=== PATIENT | female | born 1985 | race Caucasian/White ===

== ENCOUNTER → 2017-11-13 | Outpatient (CLI) | payer OTHER ==
[2015-12-16 12:14] VITALS: BMI 41.0
[~2017-11-13] MED LIST: BUPIVACAINE 0.5 % 5 MG/1 ML MPF 30ML VIAL ONE; CEFAZOLIN SOD 1 GM VIAL ONE; CIPR0.3S OP; CLC100 PO; DEXAMETHASONE SOD INJ 4 MG/ML VIAL ONE; EpHEDrine SULFATE 50MG/5ML SYR ONE; FENTANYL CITRATE INJ 50 MCG/1 ML 2 ML VIAL ONE; HYDR-5688 PO; HYDROmorphone INJ 2 MG/ML SYR/VIAL ONE; IBUP-1050 PO; KETAMINE HCL INJ 50 MG/ML 10 ML VIAL ONE; MIDAZOLAM HCL 1 MG/ML 2ML VIAL ONE; MTR600X PO; MYL80 PO; ONDANSETRON INJ 2 MG/ML 2 ML VIAL ONE; OXYC-57 PO; PHENYLEPHRINE HCL INJ 10 MG/ML VIAL ONE; PRLSR20 PO; PROPOFOL IV EMULSION 10 MG/ML 20 ML VIAL IV ONE; SODIUM CHLORIDE 0.9% INJ 10 ML VIAL ONE; VASOPRESSIN 20 UNIT/ML VIAL ONE
[2017-11-13 13:25] VITALS: BMI 38.0
--- NOTE | 2017-11-13 13:52 | PAT Medication Instructions ---
Service Date Nov 13, 2017. Current Home Medication List Ibuprofen (Advil), 400 MG PO PRN Medication Instructions For Your Scheduled Surgery - Contact your surgeon's office for instructions for: Ibuprofen (Advil), 400 MG PO PRN If you have any questions please call us at [phone] or [phone] or [phone]
[2017-11-13 14:38] LABS: BASO % 0.5 %; BASO ABS # 0.05 K/uL (0-0.2); EOS % 1.2 %; EOS ABS # 0.11 K/uL (0-0.5); HEMATOCRIT 40.6 % (37-47); HEMOGLOBIN 13.9 g/dL (12.0-16.0); IG# 0.02 K/uL (0.00-0.02); LYMPH % 22.1 %; LYMPH ABS # 2.09 K/uL (1.2-3.4); MEAN CELL VOLUME 83.7 fL (80-100); MEAN CORPUSCULAR HEMOGLOBIN 28.7 pg (25-34); MEAN CORPUSCULAR HGB CONC 34.2 g/dl (32-36); MEAN PLATELET VOLUME 11.5 fL (7.4-10.4); MONO % 6.2 %; MONO ABS # 0.59 K/uL (0.11-0.59); NEUT % 69.8 %; NEUT ABS # 6.59 K/uL (1.4-6.5); PLATELET COUNT 247 K/uL (130-400); RED CELL DISTRIBUTION WIDTH CV 13.8 % (11.5-14.5); RED CELL DISTRIBUTION WIDTH SD 41.8 fL (36.4-46.3); WHITE BLOOD COUNT 9.45 K/uL (4.8-10.8)
--- NOTE | 2017-11-29 07:55 | CODING QUERY NO DIAGNOSIS ---
TREATMENT RENDERED WITHOUT A DIAGNOSIS 85 To promote full compliance with coding requirements relating to patient care, physician participation is requested in all cases of relocation manager uncertainty. Please assist us with providing a diagnosis/symptom for the test(s) below: A diagnosis/symptom was not documented on your Order. A valid diagnosis/symptom is required to bill all insurances. Please remember that we are unable to code a diagnosis of rule out, probable, possible, questionable, or suspected. DOS 11/13/17 Tests that require a diagnosis: * CBC W/AUTO DIFF DIAGNOSIS: * TYPE/SCREEN PROFILE DIAGNOSIS: Provider Signature: Date: Thank you [facility] Once completed, please kindly fax back to [phone] For questions please call [phone]
== END | disposition home or self-care (01) ==
LOC: C.LAB 08:00 → EDSTATUS 11-29 09:00
PROVIDERS: ATTEND Obstetrics & Gynecology Obstetrics
DX: Z01.818 Encounter for other preprocedural examination (principal); N80.9 Endometriosis, unspecified

== ENCOUNTER 2017-11-29 06:30 | Observation (INO) | payer OTHER ==
[2017-11-13 13:25] VITALS: BMI 38.0
[~2017-11-29] VITALS: Ht 167.6 cm; Wt 108.2 kg
[~2017-11-29 06:30] MED LIST changes: -BUPIVACAINE 0.5 % 5 MG/1 ML MPF 30ML VIAL ONE; +CEFAZOLIN 3000MG IV PUSH 22.5 ML IV SCH; -CEFAZOLIN SOD 1 GM VIAL ONE; -CIPR0.3S OP; -CLC100 PO; -DEXAMETHASONE SOD INJ 4 MG/ML VIAL ONE; -EpHEDrine SULFATE 50MG/5ML SYR ONE; -FENTANYL CITRATE INJ 50 MCG/1 ML 2 ML VIAL ONE; -HYDR-5688 PO; -HYDROmorphone INJ 2 MG/ML SYR/VIAL ONE; -KETAMINE HCL INJ 50 MG/ML 10 ML VIAL ONE; +LACTATED RINGER'S 1000ML 1,000 ML IV SCH; -MIDAZOLAM HCL 1 MG/ML 2ML VIAL ONE; -MTR600X PO; -MYL80 PO; -ONDANSETRON INJ 2 MG/ML 2 ML VIAL ONE; -OXYC-57 PO; -PHENYLEPHRINE HCL INJ 10 MG/ML VIAL ONE; -PRLSR20 PO; -PROPOFOL IV EMULSION 10 MG/ML 20 ML VIAL IV ONE; -SODIUM CHLORIDE 0.9% INJ 10 ML VIAL ONE; -VASOPRESSIN 20 UNIT/ML VIAL ONE
[2017-11-29 06:50] VITALS: Ht 167.6 cm; Wt 108.2 kg
[2017-11-29] MEDS ORDERED: ONDANSETRON INJ 2 MG/ML 2 ML VIAL IV PRN ×2 (08:00→15:45)
[2017-11-29] MEDS ORDERED: MEPERIDINE HCL 25 MG/ML CARP IV PRN (08:00)
[2017-11-29] MEDS ORDERED: NALOXONE HCL 0.4 MG/1 ML VIAL/CARP IV PRN (08:00)
[2017-11-29] MEDS ORDERED: ATROPINE SULFATE 0.1 MG/ML 5ML SYR IV PRN (08:00)
[2017-11-29] MEDS ORDERED: EpHEDrine SULFATE INJ 50 MG/ML AMP IV PRN (08:00)
[2017-11-29] MEDS ORDERED: HYDROmorphone INJ 0.5 MG/0.5 ML SYR IV PRN (08:00)
[2017-11-29] MEDS ORDERED: LABETALOL HCL IV 5 MG/ML 20ML IV PRN (08:00)
[2017-11-29] MEDS ORDERED: PHENYLEPHRINE 100MCG/ML 5ML SYR IV PRN (08:00)
[2017-11-29] MEDS ORDERED: FLUMAZENIL 0.1 MG/1 ML 10 ML VIAL IV PRN (08:00)
[2017-11-29] MEDS ORDERED: MoRPHine SULFATE 4 MG/ML 1 ML CARP\\VIAL IV PRN (08:00)
--- NOTE | 2017-11-29 08:03 | History & Physical Bridge Note ---
H&P Re-Evaluation Bridge Note: I have examined the patient, reviewed the History & Physical and in the interval since the performance of the History & Physical I have noted the following changes of clinical significance: No changes noted
[2017-11-29] MEDS ORDERED: SCOPOLAMINE 1.5 MG TDSY TD ONE ×2 (08:09→08:15)
--- NOTE | 2017-11-29 14:28 | OPERATIVE REPORT ---
DATE OF OPERATION: 11/29/2017 PREOPERATIVE DIAGNOSIS: Endometriosis. POSTOPERATIVE DIAGNOSES: Endometriosis with extensive intraabdominal adhesions. PROCEDURE: Laparoscopic hysterectomy, which will be dictated by Dr. De Luna and extensive lysis of adhesions, laparoscopically, which was my part of the case. SURGEON: Dr. Archer. OIL AND GAS LEASE PUMPER: Dr. De Luna and Dr. Ivey. FINDINGS: Dr. Ivey and Dr. De Luna were performing a laparoscopic hysterectomy. Upon entering the abdomen, they encountered significant adhesions. The adhesions were of the omentum to the anterior abdominal wall as well as the small bowel to the anterior abdominal wall as well as to the uterus and to the bladder. There were extensive adhesions to the lateral uterine ligamentous attachments as well. Some of the adhesions were dense and required very very meticulous dissection. TECHNIQUE: The patient was given a general anesthetic. The area was prepped and draped. The placement of the trocars will be dictated by Dr. De Luna. When I encountered the significant adhesions, asked if I would participate in the case. At that point, I began to take some adhesions off the small bowel off the uterus, but it became quite clear that they were significantly thickened there. There were adhesions to the right adnexa as well and to the anterior abdominal wall, making visualization of the entire top of the uterus difficult. I then tried to dissect the small bowel off the anterior abdominal wall, but because of the omentum adhesed to the anterior abdominal wall that dissection was difficult to see and even using a 30 degree scope was difficult to see the area of adhesion. For that reason, we placed 2 additional trocars more superiorly in the abdomen under direct vision. That allowed me to see the superior most attachments of the omentum and I began taking the omentum off the abdominal working from superior to inferior and then from left to right. That exposed right colon and small bowel that were adhesed to the anterior abdominal wall and those adhesions were taken down using sharp dissection and blunt dissection. No cautery was used. I then worked towards the left side and took the adhesions of the omentum off the anterior abdominal wall and then worked towards the right side and continued with that dissection until I came to the very difficult densely adhesed small bowel towards the right lower pelvis. In taking the omentum down, though it gave me access to that area and I was able then to dissect towards the left and the right of the thickest of the adhesions, freeing small bowel and omentum further to offer the anterior abdominal wall until the densely thick adhesions were the only ones that tethered that loop of small bowel. Then staying right on the peritoneum and in fact taking a small sliver of peritoneum with the adhesions and the final ones were divided, which then allowed me to better visualize the pelvis. It was clear at that point that the bladder was densely adherent to the anterior abdominal wall as well. I then was able to grasp the superior edge of that peritoneal attachment and I was able to dissect it off the anterior surface of the uterus which allowed me then to enter a space on the anterior surface of the uterus at the junction with the cervix that was free of adhesion. I then worked left to right to dissect all of those free. That allowed better elevation of the broad and the round ligaments and on the left, there was a loop of small bowel and sigmoid colon that was densely adherent to the undersurface of the broad ligament. Using a very close meticulous a mm x a mm dissection, I was able to separate those adhesions and establish a plane in an area that had no adhesions on the inferior most aspect of the broad ligament and then worked from lateral to medial in freeing those areas. That allowed me to establish a plane behind the significantly thickened loop of small bowel that was densely attached to the dome of the uterine fundus. I then worked on the right side, taking adhesions off the lateral abdominal working from superior to inferior and lateral to medial and I was able then to identify the edge of the broad ligament. I elevated the broad ligament and worked posterior to that where there were some more flimsy adhesions of the right colon and small bowel and that entire posterior surface of the broad ligament was freed. I then worked lateral to medial from there and I was able to dissect some more loosely adherent small bowel off the lower portion of the fundus which left only the significantly thickened portion. I then was able to carefully dissect and also used some hydrodissection to separate some of those adhesions and staying right on the uterus and taking just the edge of the serosa of the uterus with a small bowel, I was able to free that loop as well. That then allowed exposure of the entire uterus including the cervix. At that point, Dr. De Luna and Dr. Ivey completed the hysterectomy and they will dictate that portion. I attest to the content of the Intraoperative Record and any orders documented therein. Any exception s are noted below.
[2017-11-29] MEDS ORDERED: FLOSEAL HEMOSTATIC MATRIX 10ML TOP ONE (15:29)
[2017-11-29] MEDS ORDERED: BUPIVACAINE 0.5 % 5 MG/1 ML MPF 30ML VIAL INJ ONE (15:30)
--- NOTE | 2017-11-29 15:43 | [facility] Post Operative Brief Note ---
Immediate Operative Summary Operative Date Nov 29, 2017. Pre-Operative Diagnosis Pelvic Pain, Endometriosis Post-Operative Diagnosis Same plus severe adhesions of the omentum and bowel to the anterior abdominal wall. uterus and right pelvic sidewall Procedure(s) Performed Total laparoscopic hysterectomy, Extensive lysis of adhesions, Fulguration of endometrial implants, and cystoscopy Surgeon Dr. De Luna, Applications Sales Representative Surgeon(s) Dr. Ivey Estimated Blood Loss 170 Findings Consistent with Post-Op Diagnosis Fluids (cc crystalloids) 3600 Specimens Uterus and cervix Drains None Anesthesia Type General Complication(s) none Disposition Disposition: Recovery Room / PACU
[2017-11-29] MEDS ORDERED: KETOROLAC TROMETHAMINE 30 MG/ML VIAL IV. PRN (15:45)
[2017-11-29] MEDS ORDERED: OXYCODONE/ACETAMINOPHEN 5-325 TAB PO PRN (15:45)
[2017-11-29] MEDS ORDERED: OXYC-57 PO (16:19)
[2017-11-29] MEDS ORDERED: MTR600X PO (16:19)
[2017-11-29] MEDS ORDERED: CLC100 PO (16:19)
[2017-11-29] MEDS ORDERED: MYL80 PO (16:19)
--- NOTE | 2017-11-29 16:21 | Discharge Instructions ---
Discharge Instructions Date of Service Nov 29, 2017. Admission Reason for Admission: Chronic Pelvis Pain, Endometriosis Discharge Discharge Diagnosis / Problem: Post-op Discharge Goals Goal(s): Routine recovery after surgery Activity Recommendations Activity Limitations: as noted below POST OPERATIVE: BOWEL FUNCTION/MEDICATIONS: 1. Constipation pain and discomfort are the most common complaints 5-7 days after surgery. Points 2-6 address the things that can help. 2. Chewing gum can help stimulate the gut and help improve digestion and motility. 3. Milk of Magnesia 1-2 times per day until return of bowel function. 4. Colace is a stool softener that helps. Taking this 2-3 times per day until bowel function returns to normal is highly recommended. 5. Dulcolax is a laxative that may be used if several days have passed without a bowel movement. Alternatively Miralax may be used daily instead. 6. Drink plenty of fluids as this will also reduce constipation. 7. Narcotic pain medications will be prescribed by your physician. They are safe to use and we encourage you to use them. If you are not allergic, ibuprofen will also be prescribed. Many patients will be able to transition off of the narcotic medications to ibuprofen by postoperative day 3. ACTIVITY RECOMMENDATIONS: 1. Get plenty of rest and listen to your body. If you are tired, take a nap. 2. You may shower, but do not take a tub bath until you see your doctor at the 2 week post operative visit. 3. Absolutely NO intercourse and nothing in the vagina until you are examined by your doctor at the 6 week visit. At that visit it will be determined when such activities can be resumed. This can range from 6-12 weeks after your surgery depending on healing time. 4. The main physical activity in the first week should be walking. By the second week you can slowly increase activity. There are no limits on walking up and down stairs. 5. Do not lift more than 5-10 lbs for 4 weeks. Remember the "one-handed rule", i.e. if you can lift something with only one hand it's likely okay. 6. Minimize survey and mapping technician like vacuuming and exercising for 4 weeks. "Overdoing it" can lead to incisions not healing, pain and vaginal bleeding , so again, listen to your body. 7. Driving can be resumed when you feel able. Do not drive within 24 hours of taking a narcotic medication. EXPECTATIONS: 1. Vaginal spotting, bleeding and discharge are common after surgery. There may even be an odor to the discharge which is often related to sutures used in the vagina. If you experience heavy vaginal bleeding, call the office number day or night [phone] 2. Bladder discomfort is common after surgery from the catheter. This usually resolves in 1-2 weeks. 3. By the end of the 3rd or 4th week you should be feeling much better. It may take up to 6 weeks for your energy levels to return to normal. 4. Narcotic medications have side effects such as: dizziness, headache, nausea and/or vomiting. If you suspect your pain medication is causing problems, call our office and we may be able to prescribe an alternate medication. 5. The skin incisions are often covered with a liquid bandage. This will gradually peel off over time. CALL THE OFFICE IF YOU HAVE ANY OF THE FOLLOWIN. Temperature of 101 degrees or higher. 2. Severe abdominal or pelvic pain not relieved by pain medication. 3. Persistent nausea or vomiting. 4. Increased pain with urination or difficulty urinating. 5. Bright red bleeding that soaks more than 1 pad per hour. CONTACT PHONE NUMBERS: Main Office: [phone] FOLLOW-UP: Post-Operative Appointments: * Individual instructions will have been given about the timing of your first examination, but this is usually at the end of the second week home. * You will need to call the office at soon after discharge to make the appointment for your post-op check-up if it has not already been scheduled. * Additional information regarding activity, sexual intercourse and when to return to work will be given at this appointment. WE WISH YOU A SPEEDY RECOVERY! . Current Hospital Diet Patient's current hospital diet: Discharge Diet Recommended Diet: Regular Diet Procedures Procedures Performed: Total Laparoscopic Hysterectomy, Fulgeration of endometrial implants, Extensive lysis of adhesions Cystoscopy- Dr De Luna Extensive lysis of adhesions- Dr Archer Pending Studies Studies pending at discharge: no Medical Emergencies . Who to Call and When: Medical Emergencies: If at any time you feel your situation is an emergency, please call 911 immediately. . Non-Emergent Contact Non-Emergency issues call your: Specialist . . "Provider Documentation" section prepared by Jazmín Herrera. .
[2017-11-29] MEDS ORDERED: IV FLUIDS COMPLETED PRN (16:30)
[2017-11-29 17:10] VITALS: BP 111/73; PULSE 88; TEMP 36.4; O2SAT 99
[2017-11-29] MEDS ORDERED: SIMETHICONE 80 MG CHEW PO PRN (17:30)
[2017-11-29] MEDS ORDERED: ACETAMINOPHEN 325 MG TAB PO SCH (17:30)
[2017-11-29 17:40] VITALS: BP 100/68; PULSE 98; O2SAT 100
[2017-11-29] MEDS: CHECK SCOPOLAMINE PATCH PLACEMENT SCH (17:41)
[2017-11-29 18:10] VITALS: BP 119/77; PULSE 88; O2SAT 98
[2017-11-29] MEDS: LACTATED RINGER'S 1000ML 1,000 ML IV SCH (18:37)
[2017-11-29] MEDS ORDERED: PROMETHAZINE HCL 25 MG TAB PO PRN (18:45)
[2017-11-29 19:20] VITALS: BP 97/67; PULSE 88; TEMP 36.4; O2SAT 99
[2017-11-29] MEDS: ACETAMINOPHEN 325 MG TAB PO PRN (19:25)
[2017-11-29] MEDS ORDERED: IBUPROFEN 600 MG TAB PO SCH (20:00)
[2017-11-29 20:05] LABS: HEMATOCRIT 37.2 % (37-47); HEMOGLOBIN 12.1 g/dL (12.0-16.0)
[2017-11-29 20:10] VITALS: BP 110/73; PULSE 88; TEMP 37; O2SAT 100
[2017-11-29] MEDS: DOCUSATE SODIUM 100 MG CAP PO SCH (20:48)
[2017-11-29] MEDS: IBUPROFEN 600 MG TAB PO PRN (20:50)
--- NOTE | 2017-11-29 21:23 | Anesthesiology Progress Note ---
Anesthesia Post Op Note Date & Time Nov 29, 2017 at 21:23 Vital Signs Pain Intensity: 1.0 Vital Signs Past 12 Hours Date Time Temp Pulse Resp B/P (MAP) Pulse Ox O2 Delivery O2 Flow Rate FiO2 11/29/17 19:20 36.4 88 16 97/67 (77) 99 Room Air 11/29/17 18:10 88 16 119/77 (91) 98 Room Air 11/29/17 17:40 98 18 100/68 (79) 100 Room Air 11/29/17 17:10 36.4 88 18 111/73 (86) 99 Room Air 11/29/17 17:10 99 Room Air 11/29/17 17:10 99 Room Air 11/29/17 16:57 91 15 98 11/29/17 16:57 92 15 11/29/17 16:56 120/69 11/29/17 16:52 102 20 97 11/29/17 16:52 102 20 11/29/17 16:51 143/66 11/29/17 16:47 97 19 99 11/29/17 16:47 97 19 11/29/17 16:46 117/67 11/29/17 16:44 36.4 99 Nasal Cannula 4 11/29/17 16:42 102 21 100 11/29/17 16:42 101 21 11/29/17 16:41 124/57 11/29/17 16:40 97 16 11/29/17 16:40 96 16 100 11/29/17 16:36 113/62 11/29/17 16:35 100 21 11/29/17 16:35 100 21 100 11/29/17 16:32 138/67 11/29/17 16:30 94 21 11/29/17 16:30 106 21 100 11/29/17 16:29 96/73 11/29/17 16:25 104 18 98 11/29/17 16:25 104 18 11/29/17 16:21 108/77 11/29/17 16:20 103 15 11/29/17 16:20 15 11/29/17 16:17 111/73 11/29/17 16:15 108 16 115/77 98 11/29/17 16:15 106 16 11/29/17 16:11 115/77 11/29/17 16:10 108 15 11/29/17 16:10 107 15 100 4/6/18 16:06 97/80 11/29/17 16:05 107 22 97 11/29/17 16:05 106 22 11/29/17 16:02 102/71 11/29/17 16:00 112 17 100 11/29/17 16:00 113 17 11/29/17 15:59 119/84 11/29/17 15:56 75/60 11/29/17 15:55 122 26 100 11/29/17 15:55 121 26 11/29/17 15:50 36.1 119 16 119/84 100 Oxymask 10 Notes Mental Status: alert / awake / arousable, participated in evaluation Pt Amnestic to Procedure: Yes Nausea / Vomiting: adequately controlled Pain: adequately controlled Airway Patency, RR, SpO2: stable & adequate BP & HR: stable & adequate Hydration State: stable & adequate Anesthetic Complications: no major complications apparent
[2017-11-30] VITALS: BP 94/61; PULSE 92; TEMP 37.2; O2SAT 99
[2017-11-30] MEDS: CHECK SCOPOLAMINE PATCH PLACEMENT SCH ×2 (00:25→07:46)
[2017-11-30] MEDS: ACETAMINOPHEN 325 MG TAB PO PRN (01:08)
[2017-11-30] MEDS: LACTATED RINGER'S 1000ML 1,000 ML IV SCH (02:31)
[2017-11-30 04:00] VITALS: BP 111/70; PULSE 84; TEMP 37.5; O2SAT 96
[2017-11-30] MEDS: IBUPROFEN 600 MG TAB PO PRN (04:06)
[2017-11-30 07:50] VITALS: BP 107/70; PULSE 84; PULSE 88; PULSE 94; TEMP 37.1; O2SAT 97
[2017-11-30 08:27] LABS: BASO % 0.1 %; BASO ABS # 0.01 K/uL (0-0.2); EOS % 0.1 %; EOS ABS # 0.01 K/uL (0-0.5); HEMATOCRIT 31.5 % (37-47); HEMOGLOBIN 10.1 g/dL (12.0-16.0); IG# 0.02 K/uL (0.00-0.02); LYMPH % 18.1 %; LYMPH ABS # 2.12 K/uL (1.2-3.4); MEAN CELL VOLUME 85.8 fL (80-100); MEAN CORPUSCULAR HEMOGLOBIN 27.5 pg (25-34); MEAN CORPUSCULAR HGB CONC 32.1 g/dl (32-36); MEAN PLATELET VOLUME 11.3 fL (7.4-10.4); MONO ABS # 0.94 K/uL (0.11-0.59); NEUT % 73.5 %; PLATELET COUNT 212 K/uL (130-400); RED CELL DISTRIBUTION WIDTH CV 14.3 % (11.5-14.5); RED CELL DISTRIBUTION WIDTH SD 44.5 fL (36.4-46.3)
--- NOTE | 2017-11-30 08:39 | [facility] Operative Report ---
Operative Report Operative Date Nov 30, 2017. Pre-Operative Diagnosis Pelvic Pain, Endometriosis Post-Operative Diagnosis Same plus extensive adhesions omentum, bowel, anterior abdominal wall, pelvic side wall and uterus Procedure(s) Performed Total Laparoscopic Hysterectomy, Fulgeration of endometrial implants, Extensive lysis of adhesions Cystoscopy- Dr De Luna Extensive lysis of adhesions- Dr Archer Surgeon Dr. De Luna, Control Panel Builder Surgeon(s) Dr. Ivey Estimated Blood Loss 170ML Findings 1. Severe adhesive disease disease (omentum and bowel adhered to the anterior abdominal wall down the the level of the uterus, bowel was adhered to the right pelvic side wall, the uterus was encased in omentum and bowel, the bowel was severely adhesed to to posterior lower uterine body). 2. Normal appearing uterine size, anteverted, after extensive lysis of adhesions. 3. Right fallopian tube visualized and severed adhered to the pelvic side wall. 4. Right adnexal mass smooth in appearance, possible cyst since Patient had a previous removal of the right ovary. Mass also severely adhered to the pelvic sidewall. 5. Normal appearing left ovary. 6. Normal appearing left fallopian tube, however, fimbrae portion not visualized. 7. Both adnexal regions severely adhered to the pelvic sidewall and not removed because of inability to locate or visualize ureter. 8. Normal appearing liver edge, falciform ligament adhered to anterior abdominal wall. 9. Normal appearing bladder on cystoscopy. Fluids 3600 Specimens A. uterus and cervix Drains None Anesthesia Type General Complication(s) none Disposition Recovery Room / PACU Indications 32 yo with chronic pelvic pain and history of stage 3 endometriosis. Description of Procedure The patient was brought into the operating room with an intravenous line in placed, and anesthetic was administered. She was placed in a low anterior lithotomy position using Alonso stirrups. The vaginal portion of the procedure included placement of a V-care uterine manipulator and a manriquez catheter. The laparoscopic port sites were anesthetized with intradermal injection of 0.50 % Sensicaine. There were four ports placed originally, including a 5-mm left subcostal port, a 5-mm umbilical port, and 5-mm right and left lower quadrant ports. The the 5 mm trocar/sleeve and laparoscope was directly entered into the pelvic cavity and a pneumoperitoneum was insufflated without difficulty. There were severe adhesions throughout the pelvic cavity. The omentum and bowel were adhered to the anterior abdominal wall, the right pelvic sidewall, and the the fundus and posterior body of the uterus. Due to severe adhesive disease, the uterus and adnexa were unable to be completely visualized. Dr. Archer ( General Surgeon) was consulted to assist with lysis of adhesions of the omentum and bowel. In order for better visualization of the entire abdomino-pelvic cavity, additional incisions were required. A 10-mm port was placed supraumbilically and an additional 5-mm port was placed in the LUQ. Extensive and meticulous lysis of adhesions was then performed by Dr. Archer (please see General Surgery operative report). Attention was then turned to the laparoscopic hysterectomy. The left utero- ovarian ligament was then grasped, coagulated and cut with the OLIVIA harmonic. The mesovarium was skeletonized. The left round ligament was also grasped, coagulated and cut. A bladder flap was mobilized by dividing the round ligaments using the OLIVIA harmonic, and the peritoneum on the vesicouterine fold was incised to mobilize the bladder. Once the colpotomy ring was skeletonized and in position, the left uterine artery was sealed using the OLIVIA Harmonic at the level of the colpotomy ring. The same procedure was performed on the contralateral side. The vagina was transected using the OLIVIA harmonic resulting in separation of the uterus and cervix. The uterus and cervix were then delivered through the vagina, and the pneumo-occluder balloon was reinserted to maintain pneumoperitoneum. The vaginal vault was closed with 0 V-loc. The abdomen was irrigated, and oozing was appreciated in the right corner adjacent to the vaginal cuff. A figure of eight suture was placed with 2-0 Vicryl. Hemostasis was achieved. Floseal was applied to the vaginal cuff area. The insufflation pressure was reduced, and no evidence of bleeding was seen. The supraumbilical port was then removed, and the fascia was closed with a 0- Vicryl on a UR-6 in a figure of eight fashion.. The remaining ports were removed under direct laparoscopic guidance, and the pneumoperitoneum was released. The skin was closed with interrupted subcuticular stitches using 4-0 Monocryl suture and dermabond. The manriquez catheter was removed. Cystoscopy was then performed with a 30 degree scope. Normal appearing bladder dome. Bilateral efflux of urine by the ureteral orifices. A 360 degree survery of the bladder was performed and revealed no lesions or sutures. The cystoscope was then removed and a new manriquez catheter inserted. The final sponge, needle, and instrument counts were correct at the completion of the procedure. The patient was awakened and taken to the post anesthesia care unit in stable condition. I attest to the content of the Intraoperative Record and any orders documented therein. Any exceptions are noted below.
[2017-11-30 09:01] LABS: CALCIUM 8.3 mg/dl (8.5-10.1); CREATININE 0.64 mg/dl (0.60-1.20); POTASSIUM 3.9 mmol/L (3.5-5.1)
[2017-11-30] MEDS ORDERED: CIPR0.3S OP (09:19)
--- NOTE | 2017-11-30 09:24 | Surgery Progress Note ---
Surgery Progress Note Date of Service Nov 30, 2017. Subjective Post OP Day: 1 + feeling well Pt c/o right eye irritation. Objective Vital Signs: Date Time Temp Pulse Resp B/P (MAP) Pulse Ox O2 Delivery O2 Flow Rate FiO2 11/30/17 07:50 37.1 88 18 107/70 (82) 97 Room Air 84 94 11/30/17 07:50 97 Room Air 11/30/17 04:00 37.5 84 18 111/70 (84) 96 Room Air 11/30/17 00:00 37.2 92 18 94/61 (72) 99 Room Air 11/30/17 00:00 99 Room Air 11/29/17 20:10 37.0 88 18 110/73 (85) 100 Room Air 11/29/17 19:20 36.4 88 16 97/67 (77) 99 Room Air 11/29/17 18:10 88 16 119/77 (91) 98 Room Air 11/29/17 17:40 98 18 100/68 (79) 100 Room Air 11/29/17 17:10 36.4 88 18 111/73 (86) 99 Room Air 11/29/17 17:10 99 Room Air 11/29/17 17:10 99 Room Air 11/29/17 16:57 91 15 98 11/29/17 16:57 92 15 11/29/17 16:56 120/69 11/29/17 16:52 102 20 97 11/29/17 16:52 102 20 11/29/17 16:51 143/66 11/29/17 16:47 97 19 99 11/29/17 16:47 97 19 11/29/17 16:46 117/67 11/29/17 16:44 36.4 99 Nasal Cannula 4 11/29/17 16:42 102 21 100 11/29/17 16:42 101 21 11/29/17 16:41 124/57 11/29/17 16:40 97 16 11/29/17 16:40 96 16 100 11/29/17 16:36 113/62 11/29/17 16:35 100 21 11/29/17 16:35 100 21 100 11/29/17 16:32 138/67 11/29/17 16:30 94 21 11/29/17 16:30 106 21 100 4/6/18 16:29 96/73 11/29/17 16:25 104 18 98 11/29/17 16:25 104 18 11/29/17 16:21 108/77 11/29/17 16:20 103 15 11/29/17 16:20 15 11/29/17 16:17 111/73 11/29/17 16:15 108 16 115/77 98 11/29/17 16:15 106 16 11/29/17 16:11 115/77 11/29/17 16:10 108 15 11/29/17 16:10 107 15 100 11/29/17 16:06 97/80 11/29/17 16:05 107 22 97 11/29/17 16:05 106 22 11/29/17 16:02 102/71 11/29/17 16:00 112 17 100 11/29/17 16:00 113 17 11/29/17 15:59 119/84 11/29/17 15:56 75/60 11/29/17 15:55 122 26 100 11/29/17 15:55 121 26 11/29/17 15:50 36.1 119 16 119/84 100 Oxymask 10 General Appearance: WD/WN, no apparent distress Respiratory/Chest: chest non-tender, lungs clear, normal breath sounds, no respiratory distress, no accessory muscle use Cardiovascular: regular rate, rhythm Abdomen: normal bowel sounds, non tender, non distended, soft Incision(s): clean, dry, intact, no erythema, no drainage Laboratory Results: Results Past 24 Hours Test 11/29/17 19:49 11/30/17 08:02 Range/Units Hemoglobin 12.1 10.1 12.0-16.0 g/dL Hematocrit 37.2 31.5 37-47 % White Blood Count 11.70 4.8-10.8 K/uL Red Blood Count 3.67 4.2-5.4 M/uL Mean Corpuscular Volume 85.8 80-100 fL Mean Corpuscular Hemoglobin 27.5 25-34 pg Mean Corpuscular Hemoglobin Concent 32.1 32-36 g/dl Platelet Count 212 130-400 K/uL Mean Platelet Volume 11.3 7.4-10.4 fL Neutrophils (%) (Auto) 73.5 % Lymphocytes (%) (Auto) 18.1 % Monocytes (%) (Auto) 8.0 % Eosinophils (%) (Auto) 0.1 % Basophils (%) (Auto) 0.1 % Neutrophils # (Auto) 8.60 1.4-6.5 K/uL Lymphocytes # (Auto) 2.12 1.2-3.4 K/uL Monocytes # (Auto) 0.94 0.11-0.59 K/uL Eosinophils # (Auto) 0.01 0-0.5 K/uL Basophils # (Auto) 0.01 0-0.2 K/uL RDW Standard Deviation 44.5 36.4-46.3 fL RDW Coefficient of Variation 14.3 11.5-14.5 % Immature Granulocyte % (Auto) 0.2 % Immature Granulocyte # (Auto) 0.02 0.00-0.02 K/uL Sodium Level 141 136-145 mmol/L Potassium Level 3.9 3.5-5.1 mmol/L Chloride Level 108 98-107 mmol/L Carbon Dioxide Level 26 21-32 mmol/L Anion Gap 7.0 3-11 mmol/L Blood Urea Nitrogen 9 7-18 mg/dl Creatinine 0.64 0.60-1.20 mg/dl Est Creatinine Clear Calc Drug Dose 157.1 ml/min Estimated GFR () 136.8 Estimated GFR (Non- 118.1 BUN/Creatinine Ratio 13.5 10-20 Random Glucose 93 70-99 mg/dl Calcium Level 8.3 8.5-10.1 mg/dl Assessment & Plan 32 yo s/p TLH/Extensive MAMTA/and cystoscopy on 11/30/17. regular diet Discharge home with instructions/meds.
[2017-11-30] MEDS: DOCUSATE SODIUM 100 MG CAP PO SCH (09:25)
[2017-11-30 10:00] VITALS: BP 107/70; PULSE 94; TEMP 37.1; O2SAT 97
== END 2017-11-30 10:00 | disposition home or self-care (01) ==
LOC: C.ACU 06:30 → C.MS4N 07:08 → ENRESERV 16:59
PROVIDERS: ADMIT Obstetrics & Gynecology Obstetrics; ATTEND Obstetrics & Gynecology Obstetrics
DX: N80.0 Endometriosis of uterus (principal); N73.6 Female pelvic peritoneal adhesions (postinfective); J45.909 Unspecified asthma, uncomplicated; Z91.018 Allergy to other foods; Z88.0 Allergy status to penicillin; Z88.1 Allergy status to other antibiotic agents; Z91.011 Allergy to milk products; Z91.030 Bee allergy status; Z90.89 Acquired absence of other organs; Z98.890 Other specified postprocedural states; E66.9 Obesity, unspecified; Z98.51 Tubal ligation status; Z90.49 Acquired absence of other specified parts of digestive tract; Z68.38 Body mass index [BMI] 38.0-38.9, adult; Z80.41 Family history of malignant neoplasm of ovary

== ENCOUNTER 2017-12-04 02:07 | Inpatient (IN) | payer OTHER ==
[2017-12-04] VITALS (7 sets, daily range): BP systolic 124–155; BP diastolic 80–98; PULSE 78–95; TEMP 36.5–37.3; O2SAT 94–100; Ht 162.6 cm; Wt 111.3 kg
[~2017-12-04] VITALS: Ht 162.6 cm; Wt 111.3 kg
[~2017-12-04 02:07] MED LIST changes: -CEFAZOLIN 3000MG IV PUSH 22.5 ML IV SCH; +CIPR0.3S OP; +CLC100 PO; -IBUP-1050 PO; -LACTATED RINGER'S 1000ML 1,000 ML IV SCH; +MTR600X PO; +MYL80 PO; +OXYC-57 PO
[2017-12-04] MEDS ORDERED: ACETAMINOPHEN 325 MG TAB PO PRN (05:15)
[2017-12-04] MEDS ORDERED: ONDANSETRON INJ 2 MG/ML 2 ML VIAL IV PRN (05:15)
--- NOTE | 2017-12-04 05:43 | History and Physical ---
History & Physical Date & Time of Service: Dec 04, 2017 at 05:43 Chief Complaint: Sbo, Septis Primary Care Physician: Kojo Still M.D. History of Present Illness Source: patient Patient is a 32-year-old female with past medical history of prothrombin gene mutation, migraine, endometriosis, obesity and other problems presents with history of worsening abdominal pain nausea vomiting. Patient underwent laparoscopic hysterectomy, extensive lysis of adhesions of omentum, bowel, anterior abdominal wall, pelvic sidewall and uterus on November 30, 2017 by and . Patient is a direct admit from [facility]. Patient reports having nausea vomiting and abdominal pain since 2 days duration. She states having multiple episodes of vomiting which is nonbloody. Reports having abdominal pain as crampy in nature, diffuse, nonradiating, 10/10 intensity, predominantly located in the epigastric, right lower quadrant and right upper quadrant. Her last bowel movement was yesterday and admits to passing gas currently. Reports associated poor appetite and intermittent dizziness which she attributes to pain. Patient had CT scan at [facility] which is suggestive of developing bowel obstruction proximal to distal ileum. Patient received IV fluids and IV vancomycin, cefoxitin, Levaquin at [facility]. Denies any history of chest pain, SOB, palpitations, pedal edema, cough, fever, chills, headache, blood in stools , diarrhea, dysuria. Past Medical/Surgical History Medical Problems: (1) Abdominal pain (2) Endometriosis (3) Pelvic pain Past Surgical History: X2 Right oophorectomy Hysterectomy Cholecystectomy Family History Mother: Heart disease Father: Brain aneurysm. Social History Smoking Status: Never Smoker Smokeless Tobacco Use: No Alcohol Use: socially Drug Use: none Marital Status: Immunizations History of Influenza Vaccine: No History of Tetanus Vaccine?: Yes History of Pneumococcal: No History of Hepatitis B Vaccine: Unknown Allergies Coded Allergies: BEE STING (Verified Allergy, Severe, ANAPHYLAXIS, 11/29/17) [place] (Verified Allergy, Intermediate, HIVES, 11/29/17) Erythromycin (Verified Adverse Reaction, Intermediate, SEVERE NAUSEA VOMITING, 11/29/17) Macrolides and Ketolides (Verified Adverse Reaction, Intermediate, Nausea and vomiting, 11/29/17) Penicillins (Verified Adverse Reaction, Intermediate, SEVERE NAUSEA AND VOMITING, 11/29/17) Tetracycline (Verified Adverse Reaction, Intermediate, VOMITING, 11/29/17) Dairy (Verified Adverse Reaction, Mild, GI UPSET, 11/29/17) Gluten (Verified Adverse Reaction, Mild, GI UPSET, 11/29/17) Home Medications Scheduled Docusate Sodium (Docusate Sodium), 100 MG PO BID Scheduled PRN Ibuprofen (Ibuprofen), 600 MG PO Q6H PRN for Pain Oxycodone/Acetaminophen 5MG/325MG (Percocet 5MG/325MG), 1 TAB PO Q4H PRN for Pain (pain scale 1-5) Simethicone (Mi-Acid Gas Relief), 80 MG PO TID PRN for GAS Review of Systems See HPI for pertinent positives & negatives. A total of 10 systems reviewed and were otherwise negative. Physical Exam Vital Signs Date Time Temp Pulse Resp B/P (MAP) Pulse Ox O2 Delivery O2 Flow Rate FiO2 12/04/17 05:05 36.8 94 18 142/96 95 Room Air 12/04/17 04:53 36.8 94 18 142/96 (111) 95 Room Air General Appearance: no apparent distress, + obese Head: normocephalic, atraumatic Eyes: normal inspection, PERRL, EOMI, sclerae normal ENT: normal ENT inspection, hearing grossly normal Neck: supple, trachea midline Respiratory/Chest: chest non-tender, lungs clear, no respiratory distress, no accessory muscle use, + decreased breath sounds Cardiovascular: regular rate, rhythm, no edema, no murmur, + tachycardia Abdomen/GI: soft, + tenderness (Epigastric, RUQ, RLQ), + abnormal bowel sounds (decreased), + pertinent finding (Post surgical scars noted) Back: normal inspection Extremities/Musculoskelatal: normal inspection, no pedal edema Neurologic/Psych: front desk representative II-XII nml as tested, no motor/sensory deficits, alert, normal mood/affect, oriented x 3 Skin: normal color, warm/dry Diagnostics Laboratory Results Results Past 24 Hours Test 12/04/17 05:40 Range/Units Microbiology Results 12/04/17 Blood Culture, Ordered Pending 12/04/17 Blood Culture, Ordered Pending Diagnostic Radiology CT ABD: done at [facility]: 1,Post operative changes of hysterectomy including a moderate amount of free fluid with no abnormal enhancement, pelvic extraperitoneal gas, and anterior abdominal wall gas. 2, distended fluid-filled small bowel loops with air-fluid levels proximal to distal ileum wall thickening and fat stranding. This could be developing bowel obstruction, or ileus associated with enteritis. Follow-up as clinically indicated. Impression Assessment and Plan Small Bowel Obstruction: Possible sepsis from Enteritis H/O recent hysterectomy with extensive lysis of adhesions by y and Presented with abd pain, nausea, vomiting, Leukocytosis Initial lactate 2.4, later 1.3 after IV fluids at [facility] CXR, UA normal at [facility] Lipase: normal Last BM:yesterday NPO for for now IV fluids, Pain control, antiemetics Empiric Abx: Cefoxitin, Flagyl Surgery consulted Blood cultures ordered Check CBC, CMP,lactate Consider OBGYN consult if needed Pain control H/P Prothrombin gene mutation: No ton any medications monitor Migraine: well controlled currently not on meds Obesity: BMI:41.9 DVT Px: Heparin SQ Code Status: Full Code Disposition: Expect to discharge home when stable Advanced Directives Existing Living Will: No Existing Power of Soft Drink Powder Mixer: No Resuscitation Status VTE Prophylaxis Will order VTE Prophylaxis: Yes
[2017-12-04] MEDS ORDERED: MoRPHine SULFATE 2 MG/ML CARP IV PRN (05:45)
[2017-12-04] MEDS ORDERED: SIMETHICONE 80 MG CHEW PO PRN (05:45)
[2017-12-04] MEDS: SODIUM CHLORIDE 0.9% 1000ML 1,000 ML IV SCH ×2 (05:59→20:06)
[2017-12-04] MEDS: CEFOXITIN IV 2,000 MG in DEXTROSE 5% 50ML 50 ML IV SCH ×3 (06:13→18:25)
[2017-12-04] MEDS ORDERED: DOCUSATE SODIUM 100 MG CAP PO PRN (06:15)
[2017-12-04 06:44] LABS: BASO % 0.2 %; BASO ABS # 0.02 K/uL (0-0.2); EOS % 3.2 %; EOS ABS # 0.39 K/uL (0-0.5); HEMATOCRIT 36.4 % (37-47); HEMOGLOBIN 11.9 g/dL (12.0-16.0); IG# 0.04 K/uL (0.00-0.02); LYMPH % 6.5 %; LYMPH ABS # 0.79 K/uL (1.2-3.4); MEAN CELL VOLUME 85.4 fL (80-100); MEAN CORPUSCULAR HEMOGLOBIN 27.9 pg (25-34); MEAN CORPUSCULAR HGB CONC 32.7 g/dl (32-36); MEAN PLATELET VOLUME 10.9 fL (7.4-10.4); MONO % 3.9 %; MONO ABS # 0.48 K/uL (0.11-0.59); NEUT % 85.9 %; NEUT ABS # 10.46 K/uL (1.4-6.5); PLATELET COUNT 301 K/uL (130-400); RED CELL DISTRIBUTION WIDTH SD 43.1 fL (36.4-46.3); WHITE BLOOD COUNT 12.18 K/uL (4.8-10.8)
[2017-12-04 07:22] LABS: ALBUMIN 3.2 gm/dl (3.4-5.0); CALCIUM 8.4 mg/dl (8.5-10.1); CREATININE 0.87 mg/dl (0.60-1.20); POTASSIUM 4.1 mmol/L (3.5-5.1)
[2017-12-04 07:24] LABS: TOTAL PROTEIN 6.9 gm/dl (6.4-8.2)
[2017-12-04] MEDS: METRONIDAZOLE / NSS 500 MG in PREMIXED NSS 100 ML IV SCH ×3 (07:33→23:43)
[2017-12-04] MEDS: HEPARIN SOD 5000 UNIT/0.5 ML CARP SQ SCH ×2 (09:09→20:14)
--- NOTE | 2017-12-04 11:27 | Surgery Consultation ---
Consultation Date of Consultation: Dec 04, 2017. Attending Physician: Jose Jefferson DO Reason for Consultation: SBO vs Ileus History of Present Illness Virginia is a 32 year old female who is POD # 5 s/p laparoscopic hysterectomy with extensive lysis of adhesions by Dr. De Luna and Dr. Archer at [facility] on Saturday11/29/2017 who presented to [place] emergency department with complaint of increasing generalized abdominal pain (cramping and sharp) with associated nausea and vomiting that began yesterday around 12 oclock. States she had normal post operative pain which then began to escalate to what felt like contraction like pain that would come and go. She then started vomiting. Small bowel movement yesterday (which was her first bowel movement since surgery ) and was small and formed. No blood in stools or black/tarry stools. In the emergency room she was found to by tachycardic, increased wbc at 12K and elevated lactic acid at 2.4. CT scan of abdomen and pelvis with contrast showed evidence of distended fluid-filled small bowel loops with air fluid levels proximal to distal Ileum wall thickening and fat stranding. This could be developing SBO vs Ileus associated with enteritis. She met criteria for SIRS and was started on IV triple antibiotic. She was directly admitted to our hospital this morning. Her labs were repeated which showed wbc at 12K, lactic acid at 1.2, and she has been afebrile. Since this morning she states she is feeling better. Last episode of vomiting was right when she arrived to [facility]. Nausea has improved. Abdominal pain improved. Passing flatus. Past Medical/Surgical History Past Medical History: 1. Prothrombin gene mutation 2. Migraine 3. Endometriosis 4. Obesity Past Surgical History: 1. Cholecystectomy 2. Right Oophorectomy 3. Hysterectomy with extensive lysis of adhesions 4. section x 2 Social History Smoking Status: Never Smoker Smokeless Tobacco Use: No Alcohol Use: socially Drug Use: none Marital Status: Allergies Coded Allergies: BEE STING (Verified Allergy, Severe, ANAPHYLAXIS, 11/29/17) [place] (Verified Allergy, Intermediate, HIVES, 11/29/17) Erythromycin (Verified Adverse Reaction, Intermediate, SEVERE NAUSEA VOMITING, 11/29/17) Macrolides and Ketolides (Verified Adverse Reaction, Intermediate, Nausea and vomiting, 11/29/17) Penicillins (Verified Adverse Reaction, Intermediate, SEVERE NAUSEA AND VOMITING, 11/29/17) Tetracycline (Verified Adverse Reaction, Intermediate, VOMITING, 11/29/17) Dairy (Verified Adverse Reaction, Mild, GI UPSET, 11/29/17) Gluten (Verified Adverse Reaction, Mild, GI UPSET, 11/29/17) Home Medications Scheduled Docusate Sodium (Docusate Sodium), 100 MG PO BID Scheduled PRN Ibuprofen (Ibuprofen), 600 MG PO Q6H PRN for Pain Oxycodone/Acetaminophen 5MG/325MG (Percocet 5MG/325MG), 1 TAB PO Q4H PRN for Pain (pain scale 1-5) Simethicone (Mi-Acid Gas Relief), 80 MG PO TID PRN for GAS Current Inpatient Medications Current Inpatient Medications Medications (Trade) Dose Ordered Sig/Alirio Route Start Time Stop Time Status Last Admin Dose Admin Heparin Sodium (Porcine) (Heparin Sq 5000 Unit/0.5ml) 5,000 unit Q12 SQ 12/04/17 09:00 01/03/18 08:59 12/04/17 09:09 5,000 UNIT Sodium Chloride 1,000 ml @ 75 mls/hr [id number] IV 12/04/17 06:00 01/03/18 05:59 12/04/17 05:59 75 MLS/HR Acetaminophen (Tylenol Tab) 650 mg Q4H PRN PO 12/04/17 05:15 01/03/18 05:14 Ondansetron HCl (Zofran Inj) 4 mg Q6H PRN IV 12/04/17 05:15 01/03/18 05:14 Morphine Sulfate (MoRPHine SULFATE INJ) 2 mg Q3H PRN IV 12/04/17 05:45 12/18/17 05:44 Simethicone (Mylicon Chew Tab) 80 mg TID PRN PO 12/04/17 05:45 01/03/18 05:44 Cefoxitin Sodium 2000 mg/Dextrose 60 ml @ 100 mls/hr Q6H IV 12/04/17 06:00 12/14/17 05:59 12/04/17 06:13 100 MLS/HR Metronidazole 500 mg/Prmx 100 ml @ 100 mls/hr Q8H IV 12/04/17 08:00 12/14/17 07:59 12/04/17 07:33 100 MLS/HR Docusate Sodium (coLACE CAP) 100 mg BID PO 12/04/17 11:30 01/03/18 06:14 UNV Review of Systems Constitutional: + chills, No fever, No sweats Respiratory: No cough, No shortness of breath Cardiovascular: No chest pain Abdomen: + pain, + nausea, + vomiting, + constipation, No diarrhea, No GI bleeding Hematologic / Lymphatic: No abnormal bleeding/bruising Integumentary: No rash Physical Exam Date Time Temp Pulse Resp B/P (MAP) Pulse Ox O2 Delivery O2 Flow Rate FiO2 12/04/17 08:00 Room Air 12/04/17 07:12 37.1 88 20 151/98 (115) 98 Room Air 12/04/17 05:05 36.8 94 18 142/96 95 Room Air 12/04/17 04:53 36.8 94 18 142/96 (111) 95 Room Air General Appearance: no apparent distress, + obese Head: normocephalic, atraumatic Eyes: sclerae normal ENT: hearing grossly normal Neck: trachea midline Respiratory/Chest: lungs clear, no respiratory distress, no accessory muscle use Cardiovascular: regular rate, rhythm, no murmur Abdomen/GI: soft, no organomegaly, no pulsatile mass, + tenderness (mild RLQ tenderness to palpation, no rigidity, guarding, or rebound.) Extremities/Musculoskelatal: normal inspection, no pedal edema Neurologic/Psych: alert, normal mood/affect, oriented x 3 Skin: normal color, warm/dry, no rash Laboratory Results Last 24 Hours Test 12/04/17 06:34 12/04/17 06:37 White Blood Count 12.18 K/uL Red Blood Count 4.26 M/uL Hemoglobin 11.9 g/dL Hematocrit 36.4 % Mean Corpuscular Volume 85.4 fL Mean Corpuscular Hemoglobin 27.9 pg Mean Corpuscular Hemoglobin Concent 32.7 g/dl Platelet Count 301 K/uL Mean Platelet Volume 10.9 fL Neutrophils (%) (Auto) 85.9 % Lymphocytes (%) (Auto) 6.5 % Monocytes (%) (Auto) 3.9 % Eosinophils (%) (Auto) 3.2 % Basophils (%) (Auto) 0.2 % Neutrophils # (Auto) 10.46 K/uL Lymphocytes # (Auto) 0.79 K/uL Monocytes # (Auto) 0.48 K/uL Eosinophils # (Auto) 0.39 K/uL Basophils # (Auto) 0.02 K/uL RDW Standard Deviation 43.1 fL RDW Coefficient of Variation 14.0 % Immature Granulocyte % (Auto) 0.3 % Immature Granulocyte # (Auto) 0.04 K/uL Sodium Level 136 mmol/L Potassium Level 4.1 mmol/L Chloride Level 107 mmol/L Carbon Dioxide Level 25 mmol/L Anion Gap 4.0 mmol/L Blood Urea Nitrogen 5 mg/dl Creatinine 0.87 mg/dl Est Creatinine Clear Calc Drug Dose 113.1 ml/min Estimated GFR () 102.2 Estimated GFR (Non- 88.1 BUN/Creatinine Ratio 5.8 Random Glucose 115 mg/dl Lactic Acid Level 1.2 mmol/L Calcium Level 8.4 mg/dl Magnesium Level 2.1 mg/dl Total Bilirubin 0.4 mg/dl Direct Bilirubin 0.1 mg/dl Aspartate Amino Transf (AST/SGOT) 15 U/L Alanine Aminotransferase (ALT/SGPT) 30 U/L Alkaline Phosphatase 85 U/L Total Protein 6.9 gm/dl Albumin 3.2 gm/dl Prothrombin Time 10.1 SECONDS Prothromb Time International Ratio 1.[address] SCAN OF ABDOMEN AND PELVIS ([facility]) 12/03/2017 RESULTS: Distended fluid filled small bowel oops with air fluid levels proximal to distal Ileum wall thickening and fat stranding. This could be developing SBO or Ileus associated with enteritis. Assessment & Plan 32 year-old female who is POD # 5 s/p laparoscopic hysterectomy with extensive lysis of adhesions who presented [facility] with complaints of abdominal pain, nausea, and vomiting that began yesterday. Met SIRS criteria and was a direct transfer. Mild leukocytosis persists, lactic acid 1.2, abdominal pain and nausea improved and now passing flatus. Abdomen is soft, tender, no rigidity, guarding, or rebound. DDX: Ileus, enteritis, PSBO resolving Plan: No acute surgical intervention required Would continue conservative management: IV pain medication, IV Fluids, IV antibiotics. May start clear liquids, revert back to NPO if nausea or vomiting, take it slow Colace 100 mg BID Encouraged OOB to chair and ambulation Repeat am labs Continue medical management will follow Dr. Bailey has seen and examined patient, agrees with above
[2017-12-04] MEDS ORDERED: DOCUSATE SODIUM 100 MG CAP PO SCH (11:45)
--- NOTE | 2017-12-04 13:28 | Progress Note ---
Subjective Date of Service: Dec 04, 2017. Subjective Pt evaluation today including: conversation w/ patient, physical exam, lab review, review of studies, review of inpatient medication list Saw/examined the patient in room 285 She is seated in bed; mild acute distress - but c/o abdominal pain currently on a clear liquid diet, but states that the hot broth makes her nauseous She did try some jello and apple juice, which stayed down Review of Systems Constitutional: No fever, No chills Respiratory: No shortness of breath Cardiac: No chest pain Abdomen: + pain, + nausea, + vomiting, No diarrhea, No constipation, No GI bleeding Medications Current Inpatient Medications Medications (Trade) Dose Ordered Sig/Alirio Route Start Time Stop Time Status Last Admin Dose Admin Heparin Sodium (Porcine) (Heparin Sq 5000 Unit/0.5ml) 5,000 unit Q12 SQ 12/04/17 09:00 01/03/18 08:59 12/04/17 09:09 5,000 UNIT Sodium Chloride 1,000 ml @ 75 mls/hr [id number] IV 12/04/17 06:00 01/03/18 05:59 12/04/17 05:59 75 MLS/HR Acetaminophen (Tylenol Tab) 650 mg Q4H PRN PO 12/04/17 05:15 01/03/18 05:14 Ondansetron HCl (Zofran Inj) 4 mg Q6H PRN IV 12/04/17 05:15 01/03/18 05:14 Morphine Sulfate (MoRPHine SULFATE INJ) 2 mg Q3H PRN IV 12/04/17 05:45 12/18/17 05:44 Simethicone (Mylicon Chew Tab) 80 mg TID PRN PO 12/04/17 05:45 01/03/18 05:44 Cefoxitin Sodium 2000 mg/Dextrose 60 ml @ 100 mls/hr Q6H IV 12/04/17 06:00 12/14/17 05:59 12/04/17 12:09 100 MLS/HR Metronidazole 500 mg/Prmx 100 ml @ 100 mls/hr Q8H IV 12/04/17 08:00 12/14/17 07:59 12/04/17 07:33 100 MLS/HR Docusate Sodium (coLACE CAP) 100 mg BID PO 12/04/17 11:45 01/03/18 11:44 12/04/17 12:09 100 MG Objective Vital Signs Date Time Temp Pulse Resp B/P (MAP) Pulse Ox O2 Delivery O2 Flow Rate FiO2 12/04/17 12:10 36.5 78 18 140/93 (109) 100 Room Air 12/04/17 08:00 Room Air 12/04/17 07:12 37.1 88 20 151/98 (115) 98 Room Air 12/04/17 05:05 36.8 94 18 142/96 95 Room Air 12/04/17 04:53 36.8 94 18 142/96 (111) 95 Room Air Physical Exam General Appearance: + mild distress, + obese Respiratory/Chest: no respiratory distress, no accessory muscle use Abdomen: + abnormal bowel sounds (decreased BS) Extremities: normal inspection, no pedal edema Laboratory Results Last 24 Hours Test 12/04/17 06:34 12/04/17 06:37 White Blood Count 12.18 K/uL Red Blood Count 4.26 M/uL Hemoglobin 11.9 g/dL Hematocrit 36.4 % Mean Corpuscular Volume 85.4 fL Mean Corpuscular Hemoglobin 27.9 pg Mean Corpuscular Hemoglobin Concent 32.7 g/dl Platelet Count 301 K/uL Mean Platelet Volume 10.9 fL Neutrophils (%) (Auto) 85.9 % Lymphocytes (%) (Auto) 6.5 % Monocytes (%) (Auto) 3.9 % Eosinophils (%) (Auto) 3.2 % Basophils (%) (Auto) 0.2 % Neutrophils # (Auto) 10.46 K/uL Lymphocytes # (Auto) 0.79 K/uL Monocytes # (Auto) 0.48 K/uL Eosinophils # (Auto) 0.39 K/uL Basophils # (Auto) 0.02 K/uL RDW Standard Deviation 43.1 fL RDW Coefficient of Variation 14.0 % Immature Granulocyte % (Auto) 0.3 % Immature Granulocyte # (Auto) 0.04 K/uL Sodium Level 136 mmol/L Potassium Level 4.1 mmol/L Chloride Level 107 mmol/L Carbon Dioxide Level 25 mmol/L Anion Gap 4.0 mmol/L Blood Urea Nitrogen 5 mg/dl Creatinine 0.87 mg/dl Est Creatinine Clear Calc Drug Dose 113.1 ml/min Estimated GFR () 102.2 Estimated GFR (Non- 88.1 BUN/Creatinine Ratio 5.8 Random Glucose 115 mg/dl Lactic Acid Level 1.2 mmol/L Calcium Level 8.4 mg/dl Magnesium Level 2.1 mg/dl Total Bilirubin 0.4 mg/dl Direct Bilirubin 0.1 mg/dl Aspartate Amino Transf (AST/SGOT) 15 U/L Alanine Aminotransferase (ALT/SGPT) 30 U/L Alkaline Phosphatase 85 U/L Total Protein 6.9 gm/dl Albumin 3.2 gm/dl Prothrombin Time 10.1 SECONDS Prothromb Time International Ratio 1.0 Assessment and Plan This is a 32 year old female with a past medical history of obesity, endometriosis, prothrombin gene mutation; recent history of hysterectomy with multiple lysis of adhesions - sent form [facility] due to small bowel obstruction and meeting SIRS criteria Small Bowel Obstruction Possible Enteritis - recent history of hysterectomy and extensive lysis of adhesions - initial lactate at [facility] was 2.4, mild leukocytosis - cultures pending - appreciate surgery input - initially was NPO, now on clear liquids - IVFs, pain control, Colace started DVT ppx - subq heparin FULL CODE
--- NOTE | 2017-12-04 18:52 | Progress Note ---
Progress Note Date of Service Dec 04, 2017. Progress Note PROFILE GRINDER Note 32 s/p TLH/Extensive MAMTA/and Cystoscopy on 11/29/2017 now with SBO vs ileus. Pt seen and examined. Abd: Soft, obese, non-tender to palpation, +BS. Incisions:c/d /i. No signs of erythema or edema. No guarding or rebound. Pelvic: No vaginal bleeding. Agree with Gen Surg recommendations. Will continue to follow.
[2017-12-04] MEDS: DOCUSATE SODIUM 100 MG CAP PO SCH (20:11)
[2017-12-05] VITALS (10 sets, daily range): BP systolic 134–153; BP diastolic 84–98; PULSE 78–95; TEMP 36.6–37.3; O2SAT 96–100
[2017-12-05] MEDS: CEFOXITIN IV 2,000 MG in DEXTROSE 5% 50ML 50 ML IV SCH ×4 (00:28→17:35)
[2017-12-05 06:23] LABS: HEMATOCRIT 32.2 % (37-47); HEMOGLOBIN 10.6 g/dL (12.0-16.0); MEAN CELL VOLUME 85.6 fL (80-100); MEAN CORPUSCULAR HEMOGLOBIN 28.2 pg (25-34); MEAN CORPUSCULAR HGB CONC 32.9 g/dl (32-36); MEAN PLATELET VOLUME 10.2 fL (7.4-10.4); PLATELET COUNT 246 K/uL (130-400); RED CELL DISTRIBUTION WIDTH CV 14.1 % (11.5-14.5); RED CELL DISTRIBUTION WIDTH SD 43.5 fL (36.4-46.3); WHITE BLOOD COUNT 8.95 K/uL (4.8-10.8)
[2017-12-05 06:55] LABS: CALCIUM 8.4 mg/dl (8.5-10.1); CREATININE 0.81 mg/dl (0.60-1.20); POTASSIUM 4.2 mmol/L (3.5-5.1)
[2017-12-05] MEDS: METRONIDAZOLE / NSS 500 MG in PREMIXED NSS 100 ML IV SCH ×3 (07:15→23:38)
[2017-12-05] MEDS: DOCUSATE SODIUM 100 MG CAP PO SCH ×2 (07:56→20:53)
[2017-12-05] MEDS: SODIUM CHLORIDE 0.9% 1000ML 1,000 ML IV SCH ×2 (07:57→21:46)
[2017-12-05] MEDS: HEPARIN SOD 5000 UNIT/0.5 ML CARP SQ SCH ×2 (09:13→20:54)
[2017-12-05] MEDS ORDERED: NURSING VERBAL MED ORDER ONE (11:00)
[2017-12-05] MEDS ORDERED: IBUPROFEN 200 MG TAB PO ONE (11:15)
--- NOTE | 2017-12-05 11:20 | Progress Note ---
Subjective Date of Service: Dec 05, 2017. Subjective Pt evaluation today including: conversation w/ patient, physical exam, lab review, review of studies, review of inpatient medication list Saw/examined the patient in room 285 She is doing well currently; in no distress States she had a bowel movement earlier today +abdominal cramping after the bowel movement states she is still hesitant to eat because of her pain Review of Systems Constitutional: No fever, No chills Respiratory: No shortness of breath Cardiac: No chest pain Abdomen: + pain, No nausea (improved), No vomiting, No diarrhea, No constipation Heme: No abnormal bleeding/bruising Medications Current Inpatient Medications Medications (Trade) Dose Ordered Sig/Alirio Route Start Time Stop Time Status Last Admin Dose Admin Heparin Sodium (Porcine) (Heparin Sq 5000 Unit/0.5ml) 5,000 unit Q12 SQ 12/04/17 09:00 01/03/18 08:59 12/05/17 09:13 5,000 UNIT Sodium Chloride 1,000 ml @ 75 mls/hr [id number] IV 12/04/17 06:00 01/03/18 05:59 12/05/17 07:57 75 MLS/HR Acetaminophen (Tylenol Tab) 650 mg Q4H PRN PO 12/04/17 05:15 01/03/18 05:14 12/04/17 20:14 650 MG Ondansetron HCl (Zofran Inj) 4 mg Q6H PRN IV 12/04/17 05:15 01/03/18 05:14 12/05/17 07:11 4 MG Morphine Sulfate (MoRPHine SULFATE INJ) 2 mg Q3H PRN IV 12/04/17 05:45 12/18/17 05:44 12/05/17 07:11 2 MG Simethicone (Mylicon Chew Tab) 80 mg TID PRN PO 12/04/17 05:45 01/03/18 05:44 Cefoxitin Sodium 2000 mg/Dextrose 60 ml @ 100 mls/hr Q6H IV 12/04/17 06:00 12/14/17 05:59 12/05/17 05:35 100 MLS/HR Metronidazole 500 mg/Prmx 100 ml @ 100 mls/hr Q8H IV 12/04/17 08:00 12/14/17 07:59 12/05/17 07:15 100 MLS/HR Docusate Sodium (coLACE CAP) 100 mg BID PO 12/04/17 21:00 01/03/18 13:59 12/05/17 07:56 100 MG Ibuprofen (Advil Tab) 400 mg TID PRN PO 12/05/17 11:00 01/04/18 10:59 Ibuprofen (Advil Tab) 400 mg ONE ONCE PO 12/05/17 11:15 12/05/17 11:16 Objective Vital Signs Date Time Temp Pulse Resp B/P (MAP) Pulse Ox O2 Delivery O2 Flow Rate FiO2 12/05/17 08:00 100 Room Air 12/05/17 07:25 36.8 95 18 153/98 (116) 100 Room Air 12/05/17 04:05 36.6 81 16 138/91 (107) 97 Room Air 12/05/17 04:05 Room Air 12/05/17 00:05 Room Air 12/04/17 23:45 37.2 86 19 124/80 (95) 95 Room Air 12/04/17 21:15 37.3 83 18 155/90 (111) 98 Room Air 12/04/17 20:00 Room Air 12/04/17 16:33 36.8 95 20 139/88 (105) 94 Room Air 12/04/17 16:00 Room Air 12/04/17 12:10 36.5 78 18 140/93 (109) 100 Room Air 12/04/17 12:00 Room Air Physical Exam General Appearance: no apparent distress Respiratory/Chest: no respiratory distress, no accessory muscle use Abdomen: normal bowel sounds, soft, + tenderness (diffuse) Laboratory Results Last 24 Hours Test 12/05/17 06:01 White Blood Count 8.95 K/uL Red Blood Count 3.76 M/uL Hemoglobin 10.6 g/dL Hematocrit 32.2 % Mean Corpuscular Volume 85.6 fL Mean Corpuscular Hemoglobin 28.2 pg Mean Corpuscular Hemoglobin Concent 32.9 g/dl RDW Standard Deviation 43.5 fL RDW Coefficient of Variation 14.1 % Platelet Count 246 K/uL Mean Platelet Volume 10.2 fL Sodium Level 139 mmol/L Potassium Level 4.2 mmol/L Chloride Level 108 mmol/L Carbon Dioxide Level 27 mmol/L Anion Gap 4.0 mmol/L Blood Urea Nitrogen 4 mg/dl Creatinine 0.81 mg/dl Est Creatinine Clear Calc Drug Dose 121.8 ml/min Estimated GFR () 111.4 Estimated GFR (Non- 96.1 BUN/Creatinine Ratio 5.0 Random Glucose 105 mg/dl Calcium Level 8.4 mg/dl Magnesium Level 2.1 mg/dl Assessment and Plan This is a 32 year old female with a past medical history of obesity, endometriosis, prothrombin gene mutation; recent history of hysterectomy with multiple lysis of adhesions - sent form [facility] due to small bowel obstruction and meeting SIRS criteria Small Bowel Obstruction Possible Enteritis 12/05 - improving; had a bowel movement - will continue current IVF and abx. - continue clears for now, slow advancement of diet at this time - will also transfer patient from tele to med/surg today - appreciate nonprofit fundraiser and general surgery input 12/04 - recent history of hysterectomy and extensive lysis of adhesions - initial lactate at [facility] was 2.4, mild leukocytosis - cultures pending - appreciate surgery input - initially was NPO, now on clear liquids - IVFs, pain control, Colace started DVT ppx - subq heparin FULL CODE
--- NOTE | 2017-12-05 12:28 | Surgery Progress Note ---
Surgery Progress Note Date of Service Dec 05, 2017. Subjective Post OP Day: HD # 2, POD # 6 laparoscopic hysterectomy extensive lysis of adhesions Objective Vital Signs: Date Time Temp Pulse Resp B/P (MAP) Pulse Ox O2 Delivery O2 Flow Rate FiO2 12/05/17 11:38 36.7 84 18 135/87 (103) 100 Room Air 12/05/17 08:00 100 Room Air 12/05/17 07:25 36.8 95 18 153/98 (116) 100 Room Air 12/05/17 04:05 36.6 81 16 138/91 (107) 97 Room Air 12/05/17 04:05 Room Air 12/05/17 00:05 Room Air 12/04/17 23:45 37.2 86 19 124/80 (95) 95 Room Air 12/04/17 21:15 37.3 83 18 155/90 (111) 98 Room Air 12/04/17 20:00 Room Air 12/04/17 16:33 36.8 95 20 139/88 (105) 94 Room Air 12/04/17 16:00 Room Air General Appearance: WD/WN, no apparent distress Head: normocephalic, atraumatic Neck: trachea midline Respiratory/Chest: no respiratory distress, no accessory muscle use Abdomen: non distended, soft, no organomegaly, no pulsatile mass, + tenderness (minimal tenderness) Laboratory Results: Results Past 24 Hours Test 12/05/17 06:01 Range/Units White Blood Count 8.95 4.8-10.8 K/uL Red Blood Count 3.76 4.2-5.4 M/uL Hemoglobin 10.6 12.0-16.0 g/dL Hematocrit 32.2 37-47 % Mean Corpuscular Volume 85.6 80-100 fL Mean Corpuscular Hemoglobin 28.2 25-34 pg Mean Corpuscular Hemoglobin Concent 32.9 32-36 g/dl RDW Standard Deviation 43.5 36.4-46.3 fL RDW Coefficient of Variation 14.1 11.5-14.5 % Platelet Count 246 130-400 K/uL Mean Platelet Volume 10.2 7.4-10.4 fL Sodium Level 139 136-145 mmol/L Potassium Level 4.2 3.5-5.1 mmol/L Chloride Level 108 98-107 mmol/L Carbon Dioxide Level 27 21-32 mmol/L Anion Gap 4.0 3-11 mmol/L Blood Urea Nitrogen 4 7-18 mg/dl Creatinine 0.81 0.60-1.20 mg/dl Est Creatinine Clear Calc Drug Dose 121.8 ml/min Estimated GFR () 111.4 Estimated GFR (Non- 96.1 BUN/Creatinine Ratio 5.0 10-20 Random Glucose 105 70-99 mg/dl Calcium Level 8.4 8.5-10.1 mg/dl Magnesium Level 2.1 1.8-2.4 mg/dl Assessment & Plan 32 year-old female who is POD # 6 s/p laparoscopic hysterectomy extensive lysis of adhesions who presented originally to [facility] on 12/03/17 with abdominal pain, nausea, and vomiting. Direct transfer to [facility] for SIRS, possible SBO vs Ileus/enteritis. Lactic acid normalized to 1.2 yesterday. Leukocytosis resolved today. + bowel movement. Plan: Advance diet as tolerated, slowly advised Patient to stop if any nausea, vomiting, or increase in pain Continue ambulation Continue stools softener Follow-up with DR. Bailey in 1 week, please call office at [phone] to make an appointment our services signing off Dr. Bailey has seen and examined patient, agrees with above.
--- NOTE | 2017-12-05 19:43 | OB/GYN Progress Note ---
MAIL DISTRIBUTOR Progress Note Date of Service Dec 05, 2017. Subjective conversation w/ patient Ambulation: ambulating normally Voiding: no voiding problems Passing Gas: Yes Diet Tolerance: Clear Liquids Notes: Crampy abdominal pain, relieved with bowel movement. Review of Systems Constitutional: No fever, No chills, No sweats Respiratory: No shortness of breath Cardiac: No chest pain, No palpitations Abdomen: No nausea, No vomiting, No diarrhea Female : No dysuria, No urinary frequency, No abnormal vaginal bleeding, No vaginal discharge Objective Vital Signs Date Time Temp Pulse Resp B/P (MAP) Pulse Ox O2 Delivery O2 Flow Rate FiO2 12/05/17 17:33 37.3 78 16 141/86 (104) 100 Room Air 12/05/17 17:30 100 Room Air 12/05/17 17:10 36.6 79 18 100 12/05/17 16:03 36.6 79 18 141/89 (106) 100 Room Air 12/05/17 16:00 Room Air 12/05/17 12:00 100 Room Air 12/05/17 11:38 36.7 84 18 135/87 (103) 100 Room Air 12/05/17 08:00 100 Room Air 12/05/17 07:25 36.8 95 18 153/98 (116) 100 Room Air 12/05/17 04:05 36.6 81 16 138/91 (107) 97 Room Air 12/05/17 04:05 Room Air 12/05/17 00:05 Room Air 12/04/17 23:45 37.2 86 19 124/80 (95) 95 Room Air 12/04/17 21:15 37.3 83 18 155/90 (111) 98 Room Air 12/04/17 20:00 Room Air Physical Exam General Appearance: NO APPARENT DISTRESS Respiratory/Chest: lungs clear Cardiovascular: regular rate, rhythm Abdomen: normal bowel sounds Incision Description: Clean, Dry & Intact Laboratory Results Last 24 Hours Test 12/05/17 06:01 White Blood Count 8.95 K/uL Red Blood Count 3.76 M/uL Hemoglobin 10.6 g/dL Hematocrit 32.2 % Mean Corpuscular Volume 85.6 fL Mean Corpuscular Hemoglobin 28.2 pg Mean Corpuscular Hemoglobin Concent 32.9 g/dl RDW Standard Deviation 43.5 fL RDW Coefficient of Variation 14.1 % Platelet Count 246 K/uL Mean Platelet Volume 10.2 fL Sodium Level 139 mmol/L Potassium Level 4.2 mmol/L Chloride Level 108 mmol/L Carbon Dioxide Level 27 mmol/L Anion Gap 4.0 mmol/L Blood Urea Nitrogen 4 mg/dl Creatinine 0.81 mg/dl Est Creatinine Clear Calc Drug Dose 121.8 ml/min Estimated GFR () 111.4 Estimated GFR (Non- 96.1 BUN/Creatinine Ratio 5.0 Random Glucose 105 mg/dl Calcium Level 8.4 mg/dl Magnesium Level 2.1 mg/dl Assessment and Plan Continue Routine Care: 32 yo HD#2, POD #6 s/p TLH, extensive lysis of intraabdominal lesions and cystoscopy now with SBO vs enteritis vs post-op ileus. VSS WBC down-trending (on IV antibiotics) Advance diet as tolerated Agree with Gen Surg recommendations.
[2017-12-05] MEDS: IBUPROFEN 200 MG TAB PO PRN (21:47)
[2017-12-06] MEDS: CEFOXITIN IV 2,000 MG in DEXTROSE 5% 50ML 50 ML IV SCH ×2 (00:09→05:51)
[2017-12-06 06:44] LABS: HEMATOCRIT 31.8 % (37-47); HEMOGLOBIN 10.2 g/dL (12.0-16.0); MEAN CELL VOLUME 85.7 fL (80-100); MEAN CORPUSCULAR HEMOGLOBIN 27.5 pg (25-34); MEAN CORPUSCULAR HGB CONC 32.1 g/dl (32-36); MEAN PLATELET VOLUME 10.7 fL (7.4-10.4); PLATELET COUNT 256 K/uL (130-400); RED CELL DISTRIBUTION WIDTH SD 43.5 fL (36.4-46.3); WHITE BLOOD COUNT 7.91 K/uL (4.8-10.8)
[2017-12-06 07:10] VITALS: BP 133/85; PULSE 74; TEMP 37; O2SAT 99
[2017-12-06 07:16] LABS: CALCIUM 8.5 mg/dl (8.5-10.1); CREATININE 0.68 mg/dl (0.60-1.20); POTASSIUM 3.8 mmol/L (3.5-5.1)
[2017-12-06] MEDS: METRONIDAZOLE / NSS 500 MG in PREMIXED NSS 100 ML IV SCH (08:21)
[2017-12-06] MEDS: DOCUSATE SODIUM 100 MG CAP PO SCH (08:25)
[2017-12-06] MEDS: IBUPROFEN 200 MG TAB PO PRN ×2 (08:28→19:24)
[2017-12-06] MEDS: HEPARIN SOD 5000 UNIT/0.5 ML CARP SQ SCH ×2 (08:30→20:48)
--- NOTE | 2017-12-06 12:33 | Progress Note ---
Subjective Date of Service: Dec 06, 2017. Subjective Pt evaluation today including: conversation w/ patient, physical exam, lab review, review of studies, review of inpatient medication list Saw/examined the patient in room 351 She feels much better today +BM, states it is loose Tolerating clear liquid diet Review of Systems Constitutional: No fever, No chills Respiratory: No shortness of breath Cardiac: No chest pain Abdomen: + pain (improving), + diarrhea, No nausea, No vomiting, No constipation Medications Current Inpatient Medications Medications (Trade) Dose Ordered Sig/Alirio Route Start Time Stop Time Status Last Admin Dose Admin Heparin Sodium (Porcine) (Heparin Sq 5000 Unit/0.5ml) 5,000 unit Q12 SQ 12/04/17 09:00 01/03/18 08:59 12/06/17 08:30 5,000 UNIT Acetaminophen (Tylenol Tab) 650 mg Q4H PRN PO 12/04/17 05:15 01/03/18 05:14 12/04/17 20:14 650 MG Ondansetron HCl (Zofran Inj) 4 mg Q6H PRN IV 12/04/17 05:15 01/03/18 05:14 12/05/17 07:11 4 MG Morphine Sulfate (MoRPHine SULFATE INJ) 2 mg Q3H PRN IV 12/04/17 05:45 12/18/17 05:44 12/05/17 07:11 2 MG Simethicone (Mylicon Chew Tab) 80 mg TID PRN PO 12/04/17 05:45 01/03/18 05:44 Cefoxitin Sodium 2000 mg/Dextrose 60 ml @ 100 mls/hr Q6H IV 12/04/17 06:00 12/14/17 05:59 12/06/17 05:51 100 MLS/HR Metronidazole 500 mg/Prmx 100 ml @ 100 mls/hr Q8H IV 12/04/17 08:00 12/14/17 07:59 12/06/17 08:21 100 MLS/HR Ibuprofen (Advil Tab) 400 mg TID PRN PO 12/05/17 11:00 01/04/18 10:59 12/06/17 08:28 400 MG Lactobacillus Acidophilus (Floranex Tab) 4 tab TIDM PO 12/06/17 12:30 01/05/18 12:29 UNV Objective Vital Signs Date Time Temp Pulse Resp B/P (MAP) Pulse Ox O2 Delivery O2 Flow Rate FiO2 12/06/17 08:05 Room Air 12/06/17 07:10 37.0 74 16 133/85 (101) 99 Room Air 12/05/17 23:33 Room Air 12/05/17 22:58 37.2 79 16 134/84 (101) 96 Room Air 12/05/17 17:33 37.3 78 16 141/86 (104) 100 Room Air 12/05/17 17:30 100 Room Air 12/05/17 17:10 36.6 79 18 100 12/05/17 16:03 36.6 79 18 141/89 (106) 100 Room Air 12/05/17 16:00 Room Air Physical Exam General Appearance: no apparent distress Abdomen: normal bowel sounds, soft, + tenderness (mildly tender) Laboratory Results Last 24 Hours Test 12/06/17 06:06 White Blood Count 7.91 K/uL Red Blood Count 3.71 M/uL Hemoglobin 10.2 g/dL Hematocrit 31.8 % Mean Corpuscular Volume 85.7 fL Mean Corpuscular Hemoglobin 27.5 pg Mean Corpuscular Hemoglobin Concent 32.1 g/dl RDW Standard Deviation 43.5 fL RDW Coefficient of Variation 14.0 % Platelet Count 256 K/uL Mean Platelet Volume 10.7 fL Sodium Level 139 mmol/L Potassium Level 3.8 mmol/L Chloride Level 110 mmol/L Carbon Dioxide Level 27 mmol/L Anion Gap 2.0 mmol/L Blood Urea Nitrogen 4 mg/dl Creatinine 0.68 mg/dl Est Creatinine Clear Calc Drug Dose 145.1 ml/min Estimated GFR () 134.1 Estimated GFR (Non- 115.7 BUN/Creatinine Ratio 5.4 Random Glucose 94 mg/dl Calcium Level 8.5 mg/dl Assessment and Plan This is a 32 year old female with a past medical history of obesity, endometriosis, prothrombin gene mutation; recent history of hysterectomy with multiple lysis of adhesions - sent form [facility] due to small bowel obstruction and meeting SIRS criteria Small Bowel Obstruction Possible Enteritis 12/06 - at this time, I'll stop abx. - advance diet to full liquid - stop IVFs, stop colace - added Floranex - hope to discharge on 12/07 12/05 - improving; had a bowel movement - will continue current IVF and abx. - continue clears for now, slow advancement of diet at this time - will also transfer patient from tele to med/surg today - appreciate dispatcher service chief and general surgery input 12/04 - recent history of hysterectomy and extensive lysis of adhesions - initial lactate at [facility] was 2.4, mild leukocytosis - cultures pending - appreciate surgery input - initially was NPO, now on clear liquids - IVFs, pain control, Colace started DVT ppx - subq heparin FULL CODE
[2017-12-06] MEDS: LACTOBACILLUS ACIDOPHILUS (FLORANEX) TAB PO SCH ×2 (13:29→19:23)
[2017-12-06 14:52] VITALS: BP 137/86; PULSE 74; TEMP 37.1; O2SAT 99
[2017-12-06 22:48] VITALS: BP 134/85; PULSE 80; TEMP 37; O2SAT 95
[2017-12-07 06:40] LABS: HEMATOCRIT 32.7 % (37-47); HEMOGLOBIN 10.9 g/dL (12.0-16.0); MEAN CELL VOLUME 85.4 fL (80-100); MEAN CORPUSCULAR HEMOGLOBIN 28.5 pg (25-34); MEAN CORPUSCULAR HGB CONC 33.3 g/dl (32-36); MEAN PLATELET VOLUME 10.1 fL (7.4-10.4); PLATELET COUNT 277 K/uL (130-400); RED CELL DISTRIBUTION WIDTH CV 13.8 % (11.5-14.5); RED CELL DISTRIBUTION WIDTH SD 42.5 fL (36.4-46.3); WHITE BLOOD COUNT 8.91 K/uL (4.8-10.8)
[2017-12-07 07:05] VITALS: BP 130/84; PULSE 70; TEMP 37; O2SAT 97
[2017-12-07 07:07] LABS: CALCIUM 8.6 mg/dl (8.5-10.1); CREATININE 0.86 mg/dl (0.60-1.20); POTASSIUM 3.8 mmol/L (3.5-5.1)
[2017-12-07] MEDS: LACTOBACILLUS ACIDOPHILUS (FLORANEX) TAB PO SCH (08:32)
[2017-12-07] MEDS: HEPARIN SOD 5000 UNIT/0.5 ML CARP SQ SCH (08:35)
--- NOTE | 2017-12-07 09:40 | Progress Note ---
Subjective Date of Service: Dec 07, 2017. Subjective Pt evaluation today including: conversation w/ patient, physical exam, lab review, review of studies, review of inpatient medication list Saw/examined the patient in room 351 She's doing well, tolerated a regular breakfast; no problems/issues to note abdominal pain resolved, no nausea/vomiting/diarrhea Review of Systems Constitutional: No fever, No chills Abdomen: No pain, No nausea, No vomiting, No diarrhea, No constipation, No GI bleeding Medications Current Inpatient Medications Medications (Trade) Dose Ordered Sig/Alirio Route Start Time Stop Time Status Last Admin Dose Admin Heparin Sodium (Porcine) (Heparin Sq 5000 Unit/0.5ml) 5,000 unit Q12 SQ 12/04/17 09:00 01/03/18 08:59 12/07/17 08:35 5,000 UNIT Acetaminophen (Tylenol Tab) 650 mg Q4H PRN PO 12/04/17 05:15 01/03/18 05:14 12/04/17 20:14 650 MG Ondansetron HCl (Zofran Inj) 4 mg Q6H PRN IV 12/04/17 05:15 01/03/18 05:14 12/05/17 07:11 4 MG Morphine Sulfate (MoRPHine SULFATE INJ) 2 mg Q3H PRN IV 12/04/17 05:45 12/18/17 05:44 12/05/17 07:11 2 MG Simethicone (Mylicon Chew Tab) 80 mg TID PRN PO 12/04/17 05:45 01/03/18 05:44 Ibuprofen (Advil Tab) 400 mg TID PRN PO 12/05/17 11:00 01/04/18 10:59 12/06/17 19:24 400 MG Lactobacillus Acidophilus (Floranex Tab) 4 tab TIDM PO 12/06/17 12:30 01/05/18 12:29 12/07/17 08:32 4 TAB Objective Vital Signs Date Time Temp Pulse Resp B/P (MAP) Pulse Ox O2 Delivery O2 Flow Rate FiO2 12/07/17 07:15 Room Air 12/07/17 07:05 37.0 70 16 130/84 (99) 97 Room Air 12/06/17 23:24 Room Air 12/06/17 22:48 37.0 80 14 134/85 (101) 95 Room Air 12/06/17 15:30 Room Air 12/06/17 14:52 37.1 74 16 137/86 (103) 99 Room Air Physical Exam General Appearance: no apparent distress Abdomen: normal bowel sounds, non tender, soft Laboratory Results Last 24 Hours Test 12/07/17 06:18 White Blood Count 8.91 K/uL Red Blood Count 3.83 M/uL Hemoglobin 10.9 g/dL Hematocrit 32.7 % Mean Corpuscular Volume 85.4 fL Mean Corpuscular Hemoglobin 28.5 pg Mean Corpuscular Hemoglobin Concent 33.3 g/dl RDW Standard Deviation 42.5 fL RDW Coefficient of Variation 13.8 % Platelet Count 277 K/uL Mean Platelet Volume 10.1 fL Sodium Level 139 mmol/L Potassium Level 3.8 mmol/L Chloride Level 107 mmol/L Carbon Dioxide Level 28 mmol/L Anion Gap 4.0 mmol/L Blood Urea Nitrogen 9 mg/dl Creatinine 0.86 mg/dl Est Creatinine Clear Calc Drug Dose 114.7 ml/min Estimated GFR () 103.6 Estimated GFR (Non- 89.4 BUN/Creatinine Ratio 10.3 Random Glucose 93 mg/dl Calcium Level 8.6 mg/dl Assessment and Plan This is a 32 year old female with a past medical history of obesity, endometriosis, prothrombin gene mutation; recent history of hysterectomy with multiple lysis of adhesions - sent form [facility] due to small bowel obstruction and meeting SIRS criteria Small Bowel Obstruction Possible Enteritis 12/07 - diet advanced to a regular diet - diarrhea improved - no abdominal pain, no nausea/vomiting - plan to d/c home today 12/06 - at this time, I'll stop abx. - advance diet to full liquid - stop IVFs, stop colace - added Floranex - hope to discharge on 12/07 12/05 - improving; had a bowel movement - will continue current IVF and abx. - continue clears for now, slow advancement of diet at this time - will also transfer patient from tele to med/surg today - appreciate deli worker and general surgery input 12/04 - recent history of hysterectomy and extensive lysis of adhesions - initial lactate at [facility] was 2.4, mild leukocytosis - cultures pending - appreciate surgery input - initially was NPO, now on clear liquids - IVFs, pain control, Colace started DVT ppx - subq heparin FULL CODE
--- NOTE | 2017-12-07 09:44 | Discharge Instructions ---
Discharge Instructions Date of Service Dec 07, 2017. Admission Reason for Admission: Abdominal Pain Discharge Discharge Diagnosis / Problem: Small Bowel Obstruction Discharge Goals Goal(s): Decrease discomfort, Improve function, Diagnostic testing, Therapeutic intervention Activity Recommendations Activity Limitations: resume your previous activity . Instructions / Follow-Up Instructions / Follow-Up Please follow up with Dr. Still on December 11 at 12:45PM Please follow-up with steel pourer helper and general surgery as scheduled Current Hospital Diet Patient's current hospital diet: Regular Diet Discharge Diet Recommended Diet: Regular Diet Pending Studies Studies pending at discharge: no Medical Emergencies . Who to Call and When: Medical Emergencies: If at any time you feel your situation is an emergency, please call 911 immediately. . Non-Emergent Contact Non-Emergency issues call your: Primary Care Provider, Assistant Controller, Surgeon . . "Provider Documentation" section prepared by Jose Jefferson. .
--- NOTE | 2017-12-07 09:46 | Discharge Summary ---
Discharge Summary Date of Service Dec 07, 2017. Discharge Summary Admission Date: Dec 04, 2017 at 04:16 Discharge Date: Dec 07, 2017 Discharge Disposition: Home Principal Diagnosis: Small Bowel Obstruction secondary to Adhesions Medication Reconciliation Continued Medications: Ibuprofen (Ibuprofen) 600 Mg Tab 600 MG PO Q6H PRN for Pain, #30 TAB 1 Refill Oxycodone/Acetaminophen 5MG/325MG (Percocet 5MG/325MG) Tab 1 TAB PO Q4H PRN for Pain (pain scale 1-5), #15 TAB PAIN Discontinued Medications: Docusate Sodium (Docusate Sodium) 100 Mg Cap 100 MG PO BID, #60 CAP 2 Refills Simethicone (Mi-Acid Gas Relief) 80 Mg Chew 80 MG PO TID PRN for GAS, #90 TABS 2 Refills Admission Information HPI (per Admitting provider): Patient is a 32-year-old female with past medical history of prothrombin gene mutation, migraine, endometriosis, obesity and other problems presents with history of worsening abdominal pain nausea vomiting. Patient underwent laparoscopic hysterectomy, extensive lysis of adhesions of omentum, bowel, anterior abdominal wall, pelvic sidewall and uterus on November 30, 2017 by and . Patient is a direct admit from [facility]. Patient reports having nausea vomiting and abdominal pain since 2 days duration. She states having multiple episodes of vomiting which is nonbloody. Reports having abdominal pain as crampy in nature, diffuse, nonradiating, 10/10 intensity, predominantly located in the epigastric, right lower quadrant and right upper quadrant. Her last bowel movement was yesterday and admits to passing gas currently. Reports associated poor appetite and intermittent dizziness which she attributes to pain. Patient had CT scan at [facility] which is suggestive of developing bowel obstruction proximal to distal ileum. Patient received IV fluids and IV vancomycin, cefoxitin, Levaquin at [facility]. Denies any history of chest pain, SOB, palpitations, pedal edema, cough, fever, chills, headache, blood in stools , diarrhea, dysuria. Physical Exam (per Admitting): General Appearance: no apparent distress, + obese Head: normocephalic, atraumatic Eyes: normal inspection, PERRL, EOMI, sclerae normal ENT: normal ENT inspection, hearing grossly normal Neck: supple, trachea midline Respiratory/Chest: chest non-tender, lungs clear, no respiratory distress, no accessory muscle use, + decreased breath sounds Cardiovascular: regular rate, rhythm, no edema, no murmur, + tachycardia Abdomen/GI: soft, + tenderness (Epigastric, RUQ, RLQ), + abnormal bowel sounds (decreased), + pertinent finding (Post surgical scars noted) Back: normal inspection Extremities/Musculoskelatal: normal inspection, no pedal edema Neurologic/Psych: stock parts inspector II-XII nml as tested, no motor/sensory deficits, alert , normal mood/affect, oriented x 3 Skin: normal color, warm/dry Hospital Course This is a 32 year old female with a past medical history of obesity, endometriosis, prothrombin gene mutation; recent history of hysterectomy with multiple lysis of adhesions - sent form [facility] due to small bowel obstruction and meeting SIRS criteria Small Bowel Obstruction Possible Enteritis 12/07 - diet advanced to a regular diet - diarrhea improved - no abdominal pain, no nausea/vomiting - plan to d/c home today 12/06 - at this time, I'll stop abx. - advance diet to full liquid - stop IVFs, stop colace - added Floranex - hope to discharge on 12/07 12/05 - improving; had a bowel movement - will continue current IVF and abx. - continue clears for now, slow advancement of diet at this time - will also transfer patient from tele to med/surg today - appreciate cocoa bean roaster helper and general surgery input 12/04 - recent history of hysterectomy and extensive lysis of adhesions - initial lactate at [facility] was 2.4, mild leukocytosis - cultures pending - appreciate surgery input - initially was NPO, now on clear liquids - IVFs, pain control, Colace started DVT ppx - subq heparin FULL CODE Total time spent on discharge = 25 minutes This includes examination of the patient, discharge planning, medication reconciliation, and communication with other providers. Discharge Instructions Please follow up with Dr. Still on December 11 at 12:45PM Please follow-up with cad librarian and general surgery as scheduled
[2017-12-07 10:32] VITALS: BP 130/84; PULSE 70; TEMP 37; O2SAT 97
--- NOTE | 2017-12-09 11:55 | EDITING REQUIRED CODING QUERY ---
To promote full compliance with coding requirements relating to patient care, provider participation is requested in all cases of lead ramp agent uncertainty. Please assist us with the question(s) below: Coding Question(s): The diagnosis below was documented in the H&P then subsequently fell off all further documentation. Please indicate if it is still a possible diagnosis or ruled out. Physician's Response(s): SEPSIS ( ) Diagnosed and POA ( ) Diagnosed and not POA ( x ) Ruled out ( ) Other (please specify)
== END 2017-12-07 10:50 | disposition home or self-care (01) | DRG 389 ==
LOC: C.MED 04:16 → ENRESERV 12-05 15:07 → C.MSW 12-05 17:49
PROVIDERS: ADMIT Internal Medicine; ATTEND Family Medicine
DX: K56.5 Intestinal adhesions [bands] with obstruction (postinfection) (principal); D68.52 Prothrombin gene mutation; Z68.41 Body mass index [BMI] 40.0-44.9, adult; K52.9 Noninfective gastroenteritis and colitis, unspecified; Z90.710 Acquired absence of both cervix and uterus; Z98.890 Other specified postprocedural states; G43.909 Migraine, unspecified, not intractable, without status migrainosus; E66.9 Obesity, unspecified; Z87.42 Personal history of other diseases of the female genital tract; Z90.721 Acquired absence of ovaries, unilateral; Z90.49 Acquired absence of other specified parts of digestive tract; Z88.0 Allergy status to penicillin; Z88.1 Allergy status to other antibiotic agents; Z91.011 Allergy to milk products; Z91.018 Allergy to other foods; Z91.030 Bee allergy status; Z82.49 Family history of ischemic heart disease and other diseases of the circulatory system